=== PATIENT | male | born 1960 | race Caucasian/White ===

== ENCOUNTER 2021-03-20 07:31 | Outpatient (CLI) | payer BC ==
[2021-03-20] VITALS (14 sets, daily range): BP systolic 131–184; BP diastolic 77–101; PULSE 62–80; TEMP 97.8
[~2021-03-20] VITALS: Ht 180.3 cm; Wt 77.5 kg
[~2021-03-20 07:31] MED LIST: BLOOD PRESSURE MED; MASON NATURAL S1 CAP PO; MUCINEX DM 60 M1 TER PO; MULTIPLE VITAMI1 CAP PO; QUALAQUIN324 MG PO; TYLENOL 500MG500 MG PO
--- NOTE | 2021-03-20 08:35 | NUR ---
PT TAKEN TO CT AN DPREPPED FOR PROCEDURE
--- NOTE | 2021-03-20 09:05 | NUR ---
Report from Annemarie PALUMBO. Transferred by cart from Radiology. Bandaid to right upper chest CD&I. VSS. Tech here to do Xray
--- NOTE | 2021-03-20 11:31 | NUR ---
INT discontinued intact. Discharge instructions given. Dr. Bryant in to see pt.
--- NOTE | 2021-03-20 11:45 | NUR ---
Transferred to private car by holli
== END 2021-03-20 11:45 | disposition home or self-care (01) ==
LOC: COL.RAD 07:31
DX: R91.8 Other nonspecific abnormal finding of lung field (principal); R63.4 Abnormal weight loss
CPT/HCPCS: Q9967

== ENCOUNTER → 2021-04-24 | Outpatient (CLI) | payer BC | LOC: COL.PUL 10:52 | DX: C34.11 Malignant neoplasm of upper lobe, right bronchus or lung (principal); F17.210 Nicotine dependence, cigarettes, uncomplicated ==

== ENCOUNTER → 2022-01-21 | Outpatient (CLI) | payer BC ==
[~2022-01-21] VITALS: Ht 180.3 cm; Wt 85.9 kg
[~2022-01-21] MED LIST changes: +ASPI325T6 PO; +B COMPLEX #11 TA1 PO; +IRON TABLETS325 MG PO; +MOTRIN 200200 MG/TAB PO; +NORCO 325 MG-51 TAB PO; +PRINIVIL20 MG PO; +THE MEDICINE SH1 T18 PO; +ZOFRAN8 MG PO
[2022-01-21 12:29] VITALS: BP 148/84; PULSE 100; TEMP 98
[2022-01-21 13:15] VITALS: BP 147/91; PULSE 93
== END ==
LOC: COL.RAD 12:00
DX: C34.11 Malignant neoplasm of upper lobe, right bronchus or lung (principal)

== ENCOUNTER → 2023-05-14 | Outpatient (CLI) | payer BC | LOC: COL.RAD 10:14 | DX: C34.11 Malignant neoplasm of upper lobe, right bronchus or lung (principal) ==

== ENCOUNTER 2023-10-05 06:49 | Inpatient (IN) | payer BC ==
[~2023-10-05] VITALS: Ht 177.8 cm; Wt 77.2 kg
[2023-10-05 07:11] LABS: BASO % 0.5 % (0.0-2.0); EOS % 0.5 % (0.0-4.0); GRAN # 2.7 K/mm3 (1.4-6.5); GRAN % 66.6 % (42.2-75.2); HEMATOCRIT 26.8 % (42.0-52.0); HEMOGLOBIN 8.1 g/dl (13.5-18.0); LYMPH # 0.5 K/mm3 (1.2-3.4); LYMPH % 13.3 % (20.0-51.0); MEAN CELL VOLUME 94 fl (80.0-100.0); MEAN CORPUSCULAR HEMOGLOBIN 28 pg (27-31); MEAN CORPUSCULAR HGB CONC 30 g/dl (33.0-37.0); MONO # 0.8 K/mm3 (0.1-0.6); MONO % 18.9 % (1.7-9.3); PLATELET COUNT 507 K/mm3 (130-400); RED BLOOD COUNT 2.86 M/mm3 (4.20-5.60); REDCELL DISTRIBUTION WIDTH-CV 18.3 % (11.5-14.5)
[2023-10-05 07:30] LABS: ALBUMIN 3.4 g/dL (3.4-4.8); BILIRUBIN,TOTAL 0.4 mg/dL (0.2-1.2); CREATININE, serum 0.95 mg/dL (0.72-1.25); POTASSIUM 4.3 mEq/L (3.5-4.5); TOTAL PROTEIN 7.2 g/dl (6.2-8.1)
[2023-10-05] MEDS ORDERED: NS 1,000 ML IV ONE (07:30)
[2023-10-05] MEDS ORDERED: Azithromycin 500 MG in NS 250 ML IV ONE (08:30)
[2023-10-05] MEDS ORDERED: cefTRIAXone 1 G in Water For Injection,Sterile 10 ML IV ONE (08:30)
[2023-10-05] MEDS ORDERED: SYNTHROID0.1 MG/TAB PO (09:03)
[2023-10-05] MEDS ORDERED: AMBIEN CR 12.12.5 MG PO (09:04)
[2023-10-05] MEDS ORDERED: PROAIR HFA0.09 MG/AC IH (09:04)
[2023-10-05] MEDS ORDERED: PRINZIDE 25 MG-1 TAB PO (09:04)
[2023-10-05] MEDS ORDERED: LASIX 40MG TABL40 MG PO (09:05)
[2023-10-05] MEDS ORDERED: FENTANYL 25 MCG TD (09:05)
--- NOTE | 2023-10-05 10:48 | NUR ---
REPORT RECEIVED FROM ED RN
[2023-10-05 11:06] LABS: PH 6.5 (5.0-8.5); URINE APPEARANCE CLEAR (CLEAR/HAZY); URINE BLOOD NEGATIVE (NEGATIVE); URINE COLOR YELLOW (YELLOW); URINE GLUCOSE NEGATIVE (NEGATIVE); URINE KETONE NEGATIVE (NEGATIVE); URINE NITRATE NEGATIVE (NEGATIVE); URINE PROTEIN(semi-quant) NEGATIVE (NEGATIVE)
--- NOTE | 2023-10-05 11:30 | NUR ---
PT LAYING IN BED UPON ENTERING. ASSESSMENT DONE, FAMILY AT BEDSIDE. PT ON 3L NASAL CANNULA WHICH IS HIS BASELINE AND REPORTS SHORTNESS OF BREATH THAT IS SLIGHTLY MORE THAN NORMAL. INT TO LEFT WRIST. FENTANYL PATCH TO LEFT CHEST. BILATERAL LOWER EXTREMITY EDEMA +1. PT INTERMITTENTLY USING OXYGEN HE DOES THIS AT HOME. FALL RISK ITEMS IN PLACE. PT DENIES NEEDS. BED IN LOWEST POSITION, CALL LIGHT IN REACH, BED ALARM ON
[2023-10-05 11:38] VITALS: BP 108/72; PULSE 102; PULSE 12; TEMP 97.9
[2023-10-05 11:43] LABS: COLLECTION METHOD CLEAN CATCH
[2023-10-05] MEDS ORDERED: Albuterol 0.042% Neb Soln 1.25 MG/3 ML UD IH PRN (13:15)
[2023-10-05] MEDS ORDERED: Morphine 4 MG/ML VIAL IV PRN (13:15)
--- NOTE | 2023-10-05 13:16 | NUR ---
ALEX WHITFIELD NOTIFIED OF PTS REPORT OF CONSTIPATION WITH NO BOWEL MOVEMENT IN 2 DAYS AND STUBBED TOE.
--- NOTE | 2023-10-05 13:39 | NUR ---
PT REPORTS GENERALZIED CHEST PAIN RATING IT 5/10. PRN NORCO GIVEN
--- NOTE | 2023-10-05 13:52 | NUR ---
PATIENT CALLED FOR PRN 1.25MG ALBUTEROL. PATIENT EXPIRATORY WHEEZE UPPER LOBES. AFTER TX PLACED ON 3LPM LPM VIA NC AT HOME. WILL CONTINUE TO CHECK ONPATIENT.
[2023-10-05] MEDS ORDERED: fentaNYL 25 MCG 72 HR PATCH TD SCH (14:15)
[2023-10-05] MEDS ORDERED: Furosemide 40 MG/4 ML VIAL IV ONE (14:15)
[2023-10-05] MEDS ORDERED: Melatonin 3 MG TAB PO PRN (15:00)
[2023-10-05] MEDS ORDERED: Ondansetron 4 MG/2 ML VIAL IV PRN (15:00)
--- NOTE | 2023-10-05 15:03 | NUR ---
IV LASIX GIVEN. PT EDUCATED ON I&OS AND GIVEN URINAL. KNEE HIGH LILI HOSE ON. LAB AND CT AT BEDSIDE UPON THE NURSE LEAVING
[2023-10-05] MEDS ORDERED: Iohexol 300 - 100 ML VIAL IV ONE (15:10)
[2023-10-05] MEDS ORDERED: NS 100 ML IV SCH (15:11)
[2023-10-05] MEDS ORDERED: COMBIRESP IH (15:39)
[2023-10-05 15:40] VITALS: BP 102/65; PULSE 101; TEMP 98.2
[2023-10-05 17:00] VITALS: BP_SYST 102
[2023-10-05] MEDS ORDERED: Albuterol/Ipratop Respimat **** subs to Albuterol/Ipratrop Nebule IH SCH (17:00)
[2023-10-05] MEDS ORDERED: Doxycycline Hyclate 100 MG in NS 150 ML IV SCH (17:00)
[2023-10-05] MEDS ORDERED: Vancomycin 1.5 GM,Special Dose/Pharmacy Prepared 1.5 GM in NS 250 ML IV SCH (17:30)
[2023-10-05] MEDS ORDERED: Albuterol/Ipratropium 3 MG-0.5 MG/3 ML Neb Soln IH SCH (19:00)
--- NOTE | 2023-10-05 19:00 | NUR ---
TWO NURSE VERIFICATIIN DURING BEDSIDE REPORT-LT CHEST FENTNYL PATCH IN PLACE (APLLIED AT HOME BY ).
--- NOTE | 2023-10-05 19:02 | NUR ---
PT REPORTS PAIN 310 AND GIVEN PRN NORCO
--- NOTE | 2023-10-05 19:06 | NUR ---
PT REPORTS THAT SPUTUM CULTURE WAS TAKEN, NOT BY THIS NURSE. LAB CALLED AND CONFIRMED THIS BUT STATES THAT IT HAS TOO MUCH SPIT AND DOESNT LOOK LIKE IT WILL RUN WELL. PT GIVEN NEW SPUTUM BOTTLE AND NOTIFIED OF THIS
[2023-10-05 20:20] VITALS: BP 107/70; PULSE 107; TEMP 98.2
[2023-10-05 20:30] VITALS: BP_SYST 115
--- NOTE | 2023-10-05 20:30 | NUR ---
UPON SHIFT ASSESSMENT, PATIENT WAS AWAKE AND AXO X4 AND IN TRIPOD POSITION WITH INCREASED WOB. LUNG SOUNDS AUSCULTATED WHEEZING AND FINE CRACKLES. IS IN BEDSIDE RECLINER. TELE IS NS. PATIENT'S VS ARE WNL WITH THE EXCEPTION OF TACHYCARDIA POSSIBLY D/T PAIN. PATIENT C/O 10 CHEST WALL PAIN R/T STAGE 4 LUNG CANCER. WILL ADMINISTER NORCO. CALL LIGHT WITHIN REACH BED ALARM ON.
[2023-10-05] MEDS ORDERED: Docusate Sodium 100 MG CAP PO SCH (21:00)
[2023-10-05 23:24] VITALS: BP 115/67; PULSE 114; TEMP 98.1
[2023-10-06] VITALS (13 sets, daily range): BP systolic 107–120; BP diastolic 63–76; PULSE 100–117; TEMP 97.6–98.3
--- NOTE | 2023-10-06 02:59 | NUR ---
ENTERED PATIENT'S ROOM. PATIENT VISABLY UPSET. STATED RT TURNED OXYGEN OFF AND HE FELT HE NEEDED IT D/T EPISODE OF SOA. CALLED RT WHO STATED HE WAS SAT 02 AT 97% WITHOUT THE NC IN PLACE-PATIENT PLACED IT ON BED, SO TURNED O2 OFF. CURRENT VS ARE WNL. PATIENT EDUCATION PROVIDED ON TITRATING O2 THERAPY AND RISK OF RESPIRATORY DRIVE DYSFUNCTION WITH OVER OXYGENATION. PATIENT UNACCEPTING AND STATED, "IT GIVES ME ANXIETY IF I DON'T HAVE OXYGEN READY." "DO NOT TURN IT OFF."
[2023-10-06 06:44] LABS: BASO % 0.4 % (0.0-2.0); EOS # 0.1 K/mm3 (0.0-0.7); GRAN # 3.8 K/mm3 (1.4-6.5); GRAN % 73.2 % (42.2-75.2); LYMPH # 0.5 K/mm3 (1.2-3.4); LYMPH % 8.9 % (20.0-51.0); MEAN CELL VOLUME 91 fl (80.0-100.0); MEAN CORPUSCULAR HGB CONC 32 g/dl (33.0-37.0); MONO # 0.8 K/mm3 (0.1-0.6); MONO % 16.3 % (1.7-9.3); PLATELET COUNT 536 K/mm3 (130-400); RED BLOOD COUNT 2.73 M/mm3 (4.20-5.60); REDCELL DISTRIBUTION WIDTH-CV 18.3 % (11.5-14.5)
[2023-10-06 06:45] LABS: HEMATOCRIT 24.9 % (42.0-52.0); HEMOGLOBIN 7.9 g/dl (13.5-18.0); MEAN CORPUSCULAR HEMOGLOBIN 29 pg (27-31)
--- NOTE | 2023-10-06 07:00 | NUR ---
PATIENT ON 3LPM, SPO2 99%, BS EXP WHEEZE. HR 110. POST TX COARSE T/O. GLADYS OROSCO.
[2023-10-06 07:02] LABS: CALCIUM 9.4 mg/dL (8.4-10.2); CREATININE, serum 0.77 mg/dL (0.72-1.25); MAGNESIUM 1.9 mg/dL (1.6-2.6); POTASSIUM 3.6 mEq/L (3.5-4.5)
--- NOTE | 2023-10-06 08:15 | NUR ---
PT LAYING IN BED UPON ENTERING, AT BEDSIDE. ASSESSMENT DONE, MEDS GIVEN PER ORDER. VANCOMYCIN RUNNING IN LEFT WRIST PER ORDER. PT USING 3L NASAL CANNULA INTERMITTENTLY, O2 ON AT THIS TIME. BILATERAL KNEE HIGH LILI HOSE ON. BILATERAL LOWER EXTREMITY EDEMA +2 WITH LEFT SLIGHTLY GREATER THAN RIGHT, PT REPORTS NOTICING AN IMPROVEMENT AFTER IV LASIX 10/04. PT REPORTS PAIN 07/25. FENTANYL PATCH TO LEFT UPPER CHEST, PLACED BY BEFORE ADMISSION. PT DENIES NEEDS AT THIS TIME. BED IN LOWEST POSITION, CALL LIGHT IN REACH, BED ALARM ON
--- NOTE | 2023-10-06 08:33 | NUR ---
DURING BEDSIDE RPEORT PT REPORTING 3/10 PAIN THATS "GETTING UP THERE". UNABLE TO GET PRN NORCO AT THIS TIME. DURING ASSESSMENT PT REPORTING 2/10 PAIN AND MORPHINE WASTED WITH LINWOOD DU
[2023-10-06] MEDS ORDERED: LISINOPRIL 20 MG PO SCH (09:00)
[2023-10-06] MEDS ORDERED: HYDROCHLOROTHIAZIDE 25 MG PO SCH (09:00)
[2023-10-06] MEDS ORDERED: Azithromycin 500 MG in NS 250 ML IV SCH (09:00)
[2023-10-06] MEDS ORDERED: cefTRIAXone 1 G in Water For Injection,Sterile 10 ML IV SCH (09:00)
[2023-10-06] MEDS ORDERED: dexAMETHasone 10 MG/ML VIAL IV SCH (09:05)
--- NOTE | 2023-10-06 10:09 | NUR ---
PT REPORTS 4/10 PAIN, PRN NORCO GIVEN
--- NOTE | 2023-10-06 11:10 | NUR ---
D: Initial visit: Agronomy Advisor stopped by room on rounds. A: Pt was sitting up in bed while the nurse was attending to him. was in the room. Pt has no needs right now. Both appreciated the visit. P: Agronomy Advisor informed the pt that if he needed anything from the supervisor anodizing area to let his nurse know. Agronomy Advisor will follow up as needed.
--- NOTE | 2023-10-06 13:53 | NUR ---
PT SITTING ON THE SIDE OF THE BED, AT BEDSIDE. PCT AT BEDSIDE WASHING PTS HAIR. PT REPORTS 3/10 PAIN AND NOTIFIED THAT NORCO IS UNAVAILABLE UNTIL 1400, TIME WRITTEN ON BOARD PER REQUEST. PT REEDUCATED ON THE FACT THAT MED IS PRN AND THAT HE NEEDS TO CALL WHEN PAIN IS INCREASING. PT ON 3L NASAL CANNULA AND DENIES NEEDS. BED IN LOWEST POSITION, CALL LIGHT IN REACH, BED ALARM ON
--- NOTE | 2023-10-06 13:54 | NUR ---
maintenance worker municipal met with pt and , Maricruz [phone] to discuss discharge planning. Pt reports he lives with his in [place]. Pt sees Dr. Mcgee for PCP needs and obtains medications from [facility] with no difficulties. Pt and reports he needs full assistance with ADLS. He has home oxygen with [employer] 24/hrs, rolator, cane, and [employer] for DME. Pt does not have a DPOA-HC and declined one at this time. SW discussed home health services and what this entails as they are eager to speak with the GI Dr. Pt was hesitant on this and the states he does not like people in the home. SW advised they can think about it, but they can always discuss with their PCP to set up after discharge. PT/OT Pending Discharge Plan: home, tbd
--- NOTE | 2023-10-06 14:17 | NUR ---
SPO2 ON 3 LPM 99%, BS COAESE CRACKLES UPPER LOBES BILAT. PATIENT STATES HE NEEDS RT TX BUT WEARS HIM OUIT.
--- NOTE | 2023-10-06 14:35 | NUR ---
PT REPORTS 4/10 PAIN AND GIVEN PRN NORCO
--- NOTE | 2023-10-06 15:06 | NUR ---
SR العلي, PULMONOLOGY, CALLED AND NOTIFIED THIS NURSE THAT BRONCHOSCOPY WILL BE PLANNED FOR 0800 10/07/23. THIS NURSE VERBALIZED UNDERSTANDING
[2023-10-06 16:25] LABS: INR 1.2 (0.8-3.0); PROTHROMBIN TIME 13.2 SECONDS (9.7-12.8)
--- NOTE | 2023-10-06 18:30 | NUR ---
RT UPPER CHEST FENTYNL PATCH VERIFIED WITH SECOND NURSE-Kamlesh
--- NOTE | 2023-10-06 18:44 | NUR ---
PT REPORTS PAIN 5/10, PRN NORCO GIVEN. OLD FENTANYL PATCH REMOVED FROM LEFT CHEST AND NEW ONE PLACED TO RIGHT CHEST. PT DENIES NEEDS. BED IN LOWEST POSITION, CALL LIGHT IN REACH, BED ALARM ON
--- NOTE | 2023-10-06 18:52 | NUR ---
REPORT GIVEN TO LINWOOD ZELAYA. FENTANYL PATCH PLACEMENT VERIFIED
[2023-10-06] MEDS ORDERED: fentaNYL 25 MCG 72 HR PATCH TD SCH (19:00)
[2023-10-06] MEDS ORDERED: Formoterol Neb Soln 20 MCG/2 ML UD IH SCH (19:00)
[2023-10-06] MEDS ORDERED: fentaNYL Patch Removal/Drugbuster TD SCH (19:00)
[2023-10-06] MEDS ORDERED: Budesonide Neb Susp 0.5 MG/2 ML AMP IH SCH (19:00)
--- NOTE | 2023-10-06 22:30 | NUR ---
UPON SHIFT ASSESSMENT, HOMER WAS UP IN BED VISITING WITH FAMILY BEDISE. HE IS AXO X4 AND CURRENTLY PLESANT AND DENYING PAIN. LUNG SOUNDS STILL AUSCULTATE EXP WHEEZES AND CRACKLES. WOB EXHIBITS ORTHOPNEA AND PATIENT IS IN TRIPOD POSITION WITH BEDSIDE TRAY HE CONVERSES WITH FAMILY. VS WNL WITH EXCEPTION OF TACHYCARDIA 104BPM, TELE IS NS. CALL LIGHT WITHIN REACH.
[2023-10-07] VITALS (12 sets, daily range): BP systolic 104–134; BP diastolic 63–77; PULSE 75–122; TEMP 97.7–98.2
[2023-10-07] MEDS ORDERED: LR 1,000 ML IV SCH (05:00)
[2023-10-07 07:07] LABS: BASO % 0.2 % (0.0-2.0); EOS % 0.2 % (0.0-4.0); GRAN # 3.7 K/mm3 (1.4-6.5); GRAN % 72.8 % (42.2-75.2); LYMPH # 0.5 K/mm3 (1.2-3.4); LYMPH % 9.4 % (20.0-51.0); MEAN CELL VOLUME 88 fl (80.0-100.0); MEAN CORPUSCULAR HGB CONC 33 g/dl (33.0-37.0); MONO # 0.9 K/mm3 (0.1-0.6); PLATELET COUNT 507 K/mm3 (130-400); RED BLOOD COUNT 2.81 M/mm3 (4.20-5.60); REDCELL DISTRIBUTION WIDTH-CV 17.9 % (11.5-14.5)
[2023-10-07 07:09] LABS: HEMATOCRIT 24.7 % (42.0-52.0); HEMOGLOBIN 8.1 g/dl (13.5-18.0); MEAN CORPUSCULAR HEMOGLOBIN 29 pg (27-31)
[2023-10-07 07:27] LABS: CALCIUM 9.9 mg/dL (8.4-10.2); CREATININE, serum 0.78 mg/dL (0.72-1.25); POTASSIUM 4.1 mEq/L (3.5-4.5)
--- NOTE | 2023-10-07 08:00 | NUR ---
Patient alert and oriented x4. Patient with family at bedside. Patient reports pain of 6/10. Patient on 3L/nc. wearing heron hose. patient npo at this time for bronchoscopy procedure. Patient has left eyelid droopiness.Patient expresses sitting in tripod position because it helps patient breath easier and help with back pain. patient call light within reach. bed at lowest position.
--- NOTE | 2023-10-07 08:59 | NUR ---
ENDO WAS CALLED BY [facility] TRAFFIC CONTROL TECHNICIAN TO SCHEDULE BROCOSCOPY FOR TOMORROW AT 0800.
[2023-10-07] MEDS ORDERED: Albuterol/Ipratropium 3 MG-0.5 MG/3 ML Neb Soln IH PRN (10:15)
[2023-10-07] MEDS ORDERED: ALPRAZolam 0.5 MG TAB PO ONE (11:15)
--- NOTE | 2023-10-07 11:25 | NUR ---
Patient was given one time dose medication for anxiety.
[2023-10-07] MEDS ORDERED: Doxycycline Hyclate 100 MG in NS 150 ML IV SCH (13:00)
[2023-10-07] MEDS ORDERED: Furosemide 20 MG TAB PO ONE (14:00)
--- NOTE | 2023-10-07 14:40 | NUR ---
PATIENT'S SPOUCE REPORTED PATIENT HAVING CONVERSATIONS WITH PATIENT'S BROTHER ABOUT A COKE DRAWER HAND BUT THE BROTHER WAS NOT IN THE ROOM. PATIENT WAS ASKED IF HE WAS TALKING TO HIS BROTHER AND PATIENT REPORTED TO THIS NURSE THAT HE WAS TALKING TO HIS BROTHER HE SAID HE WAS DAYDREAMING POSSIBLY AND LAUGHED. PATIENT REMAINS IN TRIPOD POSITION. CALL LIGHT WITHIN REACH. BED AT LOWEST POSITION.BED ALARM ON.
--- NOTE | 2023-10-07 21:30 | NUR ---
Patient sitting on edge of bed. Rates pain at 6/10, prn pain meds given. Needs met. Assessment complete. IV in right wrist flushes easily with no complications. 3L NC at this time, patient's base line. Call light and personal items in reach. Bed in low position and bed alarm on.
[2023-10-08] VITALS (27 sets, daily range): BP systolic 117–183; BP diastolic 70–138; PULSE 116–129; TEMP 97.7–99.6; O2SAT 94–99
[2023-10-08] MEDS ORDERED: LR 1,000 ML IV SCH
--- NOTE | 2023-10-08 | NUR ---
Patient stated he had some bloody sputum. Visualized small amounts of blood in sputum. Patient stated this has happened before. Will continue to monitor.
--- NOTE | 2023-10-08 05:30 | NUR ---
Patient sitting on edge of bed. Assissted patient to bathroom and back to bed. Rates pain at 8/10, prn pain meds given. Needs met. No changes over night. Call light and personal items in reach. Bed in low position and bed alarm on.
[2023-10-08 07:08] LABS: BASO % 0.2 % (0.0-2.0); GRAN # 4.1 K/mm3 (1.4-6.5); GRAN % 71.8 % (42.2-75.2); LYMPH # 0.6 K/mm3 (1.2-3.4); LYMPH % 10.4 % (20.0-51.0); MEAN CELL VOLUME 90 fl (80.0-100.0); MEAN CORPUSCULAR HGB CONC 32 g/dl (33.0-37.0); MEAN PLATELET VOLUME 8.7 fl (7.4-10.4); MONO % 17.3 % (1.7-9.3); PLATELET COUNT 604 K/mm3 (130-400); RED BLOOD COUNT 2.97 M/mm3 (4.20-5.60); REDCELL DISTRIBUTION WIDTH-CV 18.2 % (11.5-14.5)
[2023-10-08 07:16] LABS: CALCIUM 10.1 mg/dL (8.4-10.2); CREATININE, serum 0.82 mg/dL (0.72-1.25); POTASSIUM 4.2 mEq/L (3.5-4.5)
[2023-10-08 07:17] LABS: HEMATOCRIT 26.6 % (42.0-52.0); HEMOGLOBIN 8.4 g/dl (13.5-18.0); MEAN CORPUSCULAR HEMOGLOBIN 28 pg (27-31)
--- NOTE | 2023-10-08 07:45 | NUR ---
THIS NURSE AT BEDSIDE FOR REPORT, PT TAKEN TO PROCEDURE AT THIS TIME.
[2023-10-08] MEDS ORDERED: Tranexamic Acid 1,000 MG/10 ML VIAL ONE (08:10)
[2023-10-08] MEDS ORDERED: Lidocaine 2% Viscous 15 ML UNIT DOSE MM ONE (08:25)
--- NOTE | 2023-10-08 09:35 | NUR ---
REPORT CALLED TO ICU NURSE LAURA. NO QUESTIONS AT THIS TIME.
[2023-10-08 10:00] LABS: ARTERIAL BLD GAS O2 SATURATION 95.2 % (92-100); ARTERIAL BLD GAS TCO2 CT 21.6; ARTERIAL BLOOD GAS BASE EXCESS -5.3 (-2-2); ARTERIAL BLOOD GAS HCO3 20.3 meq/L (22-26); ARTERIAL BLOOD GAS PCO2 40.4 mmHg (35-45); ARTERIAL BLOOD GAS PO2 84.6 mmHg (80-100); ARTERIAL BLOOD GAS pH 7.32 (7.35-7.45)
--- NOTE | 2023-10-08 10:24 | NUR ---
Vice President Business & Corporate Development was notified that patient transferred down to ICU. SW notified ICU SW.
--- NOTE | 2023-10-08 19:45 | NUR ---
Received report from LINWOOD Merchant. Pt's vitals are stable at this time. Pt is resting in bed with at bedside. Call light is within reach. Pt is drowsy but wakes upon speech. Pt is currently on precedex drip. Will continue with pt care.
[2023-10-09] VITALS (204 sets, daily range): BP systolic 113–179; BP diastolic 75–94; PULSE 115–122; TEMP 98.3–99.6; O2SAT 34–100
[2023-10-09 04:44] LABS: GRAN # 5.2 K/mm3 (1.4-6.5); GRAN % 75.8 % (42.2-75.2); LYMPH # 0.4 K/mm3 (1.2-3.4); LYMPH % 5.4 % (20.0-51.0); MEAN CELL VOLUME 91 fl (80.0-100.0); MEAN CORPUSCULAR HGB CONC 31 g/dl (33.0-37.0); MEAN PLATELET VOLUME 8.6 fl (7.4-10.4); MONO # 1.3 K/mm3 (0.1-0.6); MONO % 18.4 % (1.7-9.3); RED BLOOD COUNT 2.75 M/mm3 (4.20-5.60); REDCELL DISTRIBUTION WIDTH-CV 18.1 % (11.5-14.5)
[2023-10-09 04:50] LABS: HEMATOCRIT 24.9 % (42.0-52.0); HEMOGLOBIN 7.8 g/dl (13.5-18.0); MEAN CORPUSCULAR HEMOGLOBIN 28 pg (27-31)
[2023-10-09 04:51] LABS: PLATELET COUNT 493 K/mm3 (130-400)
[2023-10-09 04:59] LABS: CALCIUM 9.8 mg/dL (8.4-10.2); CREATININE, serum 0.74 mg/dL (0.72-1.25); MAGNESIUM 2.1 mg/dL (1.6-2.6); POTASSIUM 4.1 mEq/L (3.5-4.5)
[2023-10-09 05:42] LABS: ARTERIAL BLD GAS O2 SATURATION 99.1 % (92-100); ARTERIAL BLD GAS TCO2 CT 28.1; ARTERIAL BLOOD GAS HCO3 26.8 meq/L (22-26); ARTERIAL BLOOD GAS PCO2 42.7 mmHg (35-45); ARTERIAL BLOOD GAS pH 7.42 (7.35-7.45)
[2023-10-09 05:43] LABS: ARTERIAL BLOOD GAS PO2 136.5 mmHg (80-100)
--- NOTE | 2023-10-09 06:05 | NUR ---
Pt had an uneventful night. Pt's HR stated tachy in the 120's throughout the night and precedex and morphine did not help bring it down much. Pt on LR and precedex at this time. Pt on the BiPAP. Pt has a chirinos in place with no kinks in tubing and had adequate urine output. Pt's vitals is stable at this time. Pt had some high BP throughout the night, hospitalist notified and orders were given to give another does of morphine which helped bring the BP down a bit. Will give report to day shift nurse.
--- NOTE | 2023-10-09 07:00 | NUR ---
Report received from LINWOOD Giron; patient currently resting in bed, RT is bedside. Patient on BiPAP and has Precedex running to help with compliance; LR is also running, both are going through a right upper arm PICC. Patient has a Garner catheter in place as he was retaining urine overnight. Patient is tachycardic this morning with heart rate in the 110s; all other vital signs are within normal limits this morning.
--- NOTE | 2023-10-09 10:00 | NUR ---
Dr.A Blackmon met with patient, patient's & brother at this time with this RN present. Dr. Blackmon discussed events of hospital course, diganotic results, current treatment, his conversation with Dr. Dominguez & plan of care. Options for ongoing care discussed. 1 - Keep doing everything that we are currently doing - bipap, medications for pain & anxiety, antibiotics, etc. 2 - Comfort care. Patient able to interact during discussion. Patient verbalized his desire for DNR. Expressed that he did not want to be in pain, but expressed understanding that pain medications could alter his respiratory status & to keep with option #[address] Blackmon answered all questions prior to leaving room. Discussed options further with patient & family. Discussed specifics of what comfort care would entail - medications used, bipap removal & visitors. Brother asked about moving patient to another nursing unit if comfort care was the decision made - advised that it would depend on the patient at that time, but moving to the M/S unit was an option if the dying process was not short once bipap removed. Talked about a longer term comfort care situation & that hospice house, home with hospice or hospice in a [place] [facility] facility would be discussed if the patient's was not imminent. talked about the patient's grandchildren wanting to visit. Advised that if comfort care was the option then nursing would ensure that grandchildren could come visit patient for 15-20 minutes before comfrot measures were started. stated that she does not want patient to suffer & knows that there is not a long-term treatment plan. stated that she feels the patient is suffering now, but she is wanting the patient to help make the decision to proceed to comfort care. Did discuss that patient is very dependent on bipap & that removing the mask in order for the patient to get a drink the patient desats quickly & becomes anxious with increasing SOB. tearful intermittently. 1030 - Patient's approaches this RN in the bean. Asks if local grandchildren can come in today to see patient. She was tearful & stated that they will likely proceed to comfort care over the next few days, but wanted family to be able to see him while they still could. Local grandchildren will be in today to visit for 15-20 minutes. Other grandchildren from out of town will be called today with the hope of being able to come this weekend. Update provided to Karma primary RN.
[2023-10-09] MEDS ORDERED: Furosemide 40 MG/4 ML VIAL IV SCH (10:06)
[2023-10-09] MEDS ORDERED: amLODIPine 10 MG TAB PO SCH (11:29)
[2023-10-09] MEDS ORDERED: HYDROmorphone 0.5 MG/0.5 ML SYRINGE IV PRN (14:30)
[2023-10-09] MEDS ORDERED: Morphine 4 MG/ML VIAL IV PRN ×2 (18:30→19:45)
[2023-10-09] MEDS ORDERED: LORazepam 2 MG/ML 1 ML VIAL SQ PRN (18:30)
[2023-10-09] MEDS ORDERED: Ondansetron 4 MG/2 ML VIAL IV PRN (18:30)
[2023-10-09] MEDS ORDERED: LORazepam 2 MG/ML 1 ML VIAL IV PRN ×2 (18:30→19:45)
--- NOTE | 2023-10-09 19:30 | NUR ---
PT TAKEN OFF BIPAP AND PLACED ON OXYMASK AT 3L.
[2023-10-09] MEDS ORDERED: LORazepam 2 MG/ML 1 ML VIAL IV ONE (19:45)
[2023-10-09] MEDS ORDERED: Haloperidol Lactate 5 MG/ML VIAL IV PRN (19:45)
--- NOTE | 2023-10-09 20:00 | NUR ---
Received report from LINWOOD Parada at 1900. Pt is sitting up in bed alert on BiPAP. Pt going to comfort care. Gave comfort care meds while taking the BiPAP off per EMAR. Oxymask put on at 3 L for pt's comfort. Pt in distress around 1930. Got orders from hospitalist to give another dose of morphine, 1 mg of ativan, and 2mg of Haldol per EMAR. Pt time of was pronounced at 1946 by hospitalist, LEELA Oliveros.
--- NOTE | 2023-10-09 20:33 | NUR ---
[facility] notified of patient BROOKE, 1942. Patient not a candidate for tissue donation. Await contact from [facility]. [facility] # [phone].
--- NOTE | 2023-10-09 21:38 | NUR ---
Per [facility], not a candidate for eye donation. Patient may be released to home.
--- NOTE | 2023-10-09 23:17 | NUR ---
Postmortem care given. PICC line and catheter removed. Pt went with [id number] at 2235 with his only belonging being underwear.
[2023-10-10] MEDS ORDERED: Scopolamine 1 MG Delivered 3-Day PATCH TD SCH (09:00)
== END 2023-10-09 22:35 | disposition expired | DRG 871 ==
LOC: COL.ER 06:49 → MEDICAL 08:45 → ICU 17:42 → MEDICAL 17:43 → ICU 10-08 09:00
PROVIDERS: Internal Medicine Pulmonary Disease; Nurse Practitioner Family; Personal Emergency Response Attendant; ADMIT Hospitalist
PROC: 0BD38ZX Extraction of Right Main Bronchus, Via Natural or Artificial Opening Endoscopic, Diagnostic (ICD-10-PCS; 2023-10-08)
PROC: 0BD48ZX Extraction of Right Upper Lobe Bronchus, Via Natural or Artificial Opening Endoscopic, Diagnostic (ICD-10-PCS; 2023-10-08)
PROC: 5A09457 Assistance with Respiratory Ventilation, 24-96 Consecutive Hours, Continuous Positive Airway Pressure (ICD-10-PCS; 2023-10-08)
PROC: 02HV33Z Insertion of Infusion Device into Superior Vena Cava, Percutaneous Approach (ICD-10-PCS; principal; 2023-10-08 08:00)
DX: A41.9 Sepsis, unspecified organism (principal); G93.41 Metabolic encephalopathy; J18.9 Pneumonia, unspecified organism; J96.21 Acute and chronic respiratory failure with hypoxia; C34.90 Malignant neoplasm of unspecified part of unspecified bronchus or lung; J90 Pleural effusion, not elsewhere classified; R04.2 Hemoptysis; Z66 Do not resuscitate; Z51.5 Encounter for palliative care; I10 Essential (primary) hypertension; G47.00 Insomnia, unspecified; E03.9 Hypothyroidism, unspecified; D64.9 Anemia, unspecified; D75.839 Thrombocytosis, unspecified; J98.09 Other diseases of bronchus, not elsewhere classified; K59.00 Constipation, unspecified; R53.81 Other malaise; Z79.890 Hormone replacement therapy; Z79.899 Other long term (current) drug therapy; Z87.891 Personal history of nicotine dependence; Z99.81 Dependence on supplemental oxygen; Z23 Encounter for immunization
CPT/HCPCS: OP; A4314; C1751; J0456; J0696; J1100; J1170; J1630; J1940; J2060; J2270; J2543; J2704; J3370; J7030; J7050; J7120; Q9967